=== PATIENT | male | born 1940 | race Caucasian/White ===

== ENCOUNTER 2017-03-30 07:10 | Inpatient (IN) | payer OTHER, BC ==
[~2017-03-30] VITALS: Ht 182.9 cm; Wt 99.8 kg
--- NOTE | 2017-03-30 07:10 | NUR ---
Patient was BIBA and taken to bed 03 via gurney per EMS.
[2017-03-30 07:14] VITALS: BP 120/63
[2017-03-30] MEDS ORDERED: TOLT1TAB PO (07:19)
--- NOTE | 2017-03-30 07:20 | NUR ---
Dr. Rodriguez evaluating patient at bedside.
[2017-03-30] MEDS ORDERED: RISP0.2515 PO (07:22)
[2017-03-30] MEDS ORDERED: RISP0.5T PO (07:22)
[2017-03-30] MEDS ORDERED: RISP0.5T19 PO (07:22)
[2017-03-30] MEDS ORDERED: DOCU-2 PO (07:23)
[2017-03-30] MEDS ORDERED: ATOR40TA PO (07:28)
[2017-03-30] MEDS ORDERED: METF500T4 PO (07:28)
[2017-03-30] MEDS ORDERED: ASPI81CT27 PO (07:28)
[2017-03-30] MEDS ORDERED: PANT40EC PO (07:28)
[2017-03-30] MEDS ORDERED: METO25TA3 PO (07:28)
[2017-03-30] MEDS ORDERED: TAMS0.4C96 PO (07:28)
[2017-03-30] MEDS ORDERED: FURO20TA8 PO (07:28)
[2017-03-30] MEDS ORDERED: MULT-1184 PO (07:28)
[2017-03-30] MEDS ORDERED: [UNRECOGNIZED DRUG - CODE] PO (07:28)
--- NOTE | 2017-03-30 07:35 | NUR ---
LAB at bedside.
--- NOTE | 2017-03-30 07:39 | NUR ---
XRAY at bedside.
[2017-03-30 07:44] LABS: BASOPHILS % (AUTO) 0.2 % (0.0-2.0); EOSINOPHILS # (AUTO) 0.2 K/uL (0-0.4); EOSINOPHILS % (AUTO) 1.3 % (0.0-4.0); HEMOGLOBIN 11.6 g/dL (12.0-18.0); LYMPHOCYTES # (AUTO) 0.5 K/uL (2.0-11.5); LYMPHOCYTES % (AUTO) 3.7 % (20.5-51.1); MEAN CORPUSCULAR HEMOGLOBIN 31 pg (27-31); MEAN CORPUSCULAR HGB CONC 34 g/dL (33-37); MEAN CORPUSCULAR VOLUME 91 fL (80-94); MONOCYTES # (AUTO) 1.6 K/uL (0.8-1.0); MONOCYTES % (AUTO) 10.8 % (1.7-9.3); NEUTROPHILS # (AUTO) 12.4 K/uL (1.8-7.7); PLATELET COUNT (AUTO) 199 K/uL (140-450); RED BLOOD CELL COUNT(AUTO) 3.74 MIL/uL (4.20-6.10)
--- NOTE | 2017-03-30 07:44 | NUR ---
RT at bedside to perform ABG.
[2017-03-30] MEDS ORDERED: cefTRIAXone 2,000 MG in DEXTROSE 5% 100 ML IV ONE (07:45)
[2017-03-30] MEDS ORDERED: ACETAMINOPHEN EXTRA STRENGTH 500 MG TAB PO ONE (07:45)
[2017-03-30 07:56] LABS: CALCIUM 8.6 mg/dL (8.5-10.1); CARBON DIOXIDE 23.8 mmol/L (21-32); CHLORIDE 104 mmol/L (98-107); CREATININE 1.5 mg/dL (0.6-1.3); GLUCOSE 307 mg/dL (74-106); POTASSIUM 3.8 mmol/L (3.5-5.1); SODIUM SERUM 140 mmol/L (136-145); UREA NITROGEN, BLOOD 23 mg/dL (7-18)
[2017-03-30] MEDS ORDERED: cefTRIAXone 2,000 MG VIAL ONE (07:58)
[2017-03-30 08:01] LABS: ALANINE AMINOTRANSFERASE 24 U/L (12-78); ALBUMIN 2.8 g/dL (3.4-5.0); ALKALINE PHOSPHATASE 104 U/L (46-116); ASPARTATE AMINOTRANSFERASE 34 U/L (15-37); TOTAL BILIRUBIN 0.9 mg/dL (0.0-1.0); TOTAL PROTEIN, SERUM 7.3 g/dL (6.4-8.2)
[2017-03-30 08:03] LABS: WHITE BLOOD COUNT (AUTO) 14.7 K/uL (4.8-10.8)
[2017-03-30 08:04] LABS: INR 1.1 (0.8-1.2); PARTIAL THROMBOPLASTIN TIME 31.3 secs (22-35.6); PROTHROMBIN TIME 10.8 secs (10.8-13.4)
[2017-03-30 08:16] LABS: LACTIC ACID 1.6 mmol/L (0.4-2.0)
--- NOTE | 2017-03-30 08:36 | NUR ---
77/M BIBA FOR FEVER AND ALTERED LOC. PT DENIES PAIN. PT APPEARS CONFUSED. LUNGS CLEAR BILAT. HR EVEN AND REGULAR. AAOX3. VSS. ERMD TO EVAL PT.
[2017-03-30] MEDS ORDERED: LOVENOX 1MG/KG Q12H SUBQ SCH (09:05)
[2017-03-30 09:11] LABS: APPEARANCE,URINE HAZY (CLEAR); BILIRUBIN,URINE NEGATIVE (NEGATIVE); BLOOD, URINE 3+ (NEGATIVE); COLOR,URINE YELLOW (YELLOW); LEUKOCYTE ESTERASE ,URINE 2+ (NEGATIVE); NITRITE, URINE NEGATIVE (NEGATIVE); PH,URINE 5.5 (5.0-9.0); PROTEIN,URINE 2+ (NEGATIVE); UGLUCOSE NEGATIVE (NEGATIVE)
--- NOTE | 2017-03-30 09:14 | NUR ---
Patient appears to be resting comfortably in bed. Vital Signs within normal limits. Respirations even and unlabored.
--- NOTE | 2017-03-30 09:50 | NUR ---
PC[facility] - [facility] [place]
--- NOTE | 2017-03-30 09:53 | NUR ---
EX - CLOSEST CONTACT CELL IS [phone] - KITTY
--- NOTE | 2017-03-30 10:10 | NUR ---
RPatient appears to be resting comfortably in bed. Vital Signs within normal limits. Respirations even and unlabored.
[2017-03-30 10:11] LABS: BLOOD GAS BASE EXCESS 0.4 mmol/L (-2.0-2.0); BLOOD GAS HCO3 22.5 mmol/L; BLOOD GAS PH 7.508 (7.35-7.45); BLOOD GAS PO2 63.3 mmHg
[2017-03-30 10:12] LABS: BLOOD GAS O2 SAT% 91.9 % (92.0-98.5)
[2017-03-30 11:13] LABS: BACTERIA,URINE 2+ /HPF (None Seen); MUCUS,URINE 1+ /LPF (None Seen); RBC,URINE 11-20 (MOD) /HPF (0-5); SQUAMOUS EPITHELIAL CELL,UR 0-3 (FEW) /LPF (0-3 (FEW)); WBC,URINE 20-60 /HPF (0-5)
[2017-03-30] MEDS ORDERED: ENOXAPARIN 100 MG/ML SYR SUBQ ONE (11:15)
--- NOTE | 2017-03-30 11:52 | NUR ---
Patient appears to be resting comfortably in bed. Vital Signs within normal limits. Respirations even and unlabored.
[2017-03-30] MEDS ORDERED: HYDROcodone/APAP 5/325 MG 1 TAB TAB PO PRN (11:55)
[2017-03-30] MEDS ORDERED: LORazepam 2 MG/ML VIAL IVP PRN (11:55)
[2017-03-30] MEDS ORDERED: ACETAMINOPHEN 325 MG TAB PO PRN (11:55)
[2017-03-30] MEDS ORDERED: ONDANSETRON 4 MG/2 ML VIAL IVP PRN (11:55)
[2017-03-30] MEDS ORDERED: DEXTROSE 50% 50 ML SYR IVP PRN (11:55)
[2017-03-30] MEDS ORDERED: DEXT 5% /NACL 0.9% 1,000 ML IV SCH (11:55)
--- NOTE | 2017-03-30 12:04 | NUR ---
Patient will be admitted to care of DR RICHARDS. Admited to TELE. Will go to room 111A. Belongings list completed. Report to SOLOMON.
--- NOTE | 2017-03-30 12:20 | NUR ---
PT ON UNIT FROM ER. NO S/S OF ACUTE DISTRESS. AAOX2. PT DENIES PAIN AT THIS TIME. ON 2 4L NC. IV SITES PATENT AND INTACT. 2+ PITTING EDEMA NOTED TO BLE. PT ORIENTED TO ROOM. FALL PRECAUTIONS INITIATED. CALL LIGHT WITHIN REACH. SAFETY MEASURES ENSURED. WILL CONTINUE TO MONITOR.
[2017-03-30] MEDS: NACL 0.9% 1,000 ML IV SCH (12:50)
[2017-03-30 13:14] VITALS: BP 116/60
--- NOTE | 2017-03-30 15:38 | NUR ---
PT SLEEPING IN BED. NO S/S OF ACUTE DISTRESS. CALL LIGHT WITHIN REACH. WILL CONTINUE TO MONITOR.
[2017-03-30 16:00] VITALS: BP 153/71
[2017-03-30 16:39] LABS: CREATINE KINASE MB 12.5 ng/mL (0-3.6)
[2017-03-30] MEDS: BLOOD GLUCOSE MONITORING 1 DEV DEV FS SCH ×2 (17:11→20:34)
--- NOTE | 2017-03-30 17:26 | NUR ---
PT TAKEN OFF UNIT TO VQ SCAN
[2017-03-30] MEDS ORDERED: LOVENOX 1MG/KG Q24H SUBQ SCH (17:30)
[2017-03-30] MEDS ORDERED: CLINICAL MONITORING MC PRN (17:50)
[2017-03-30] MEDS: INSULIN LISPRO SLIDING SCALE 100 UNITS/ML VIAL SUBQ PRN ×2 (18:17→20:51)
--- NOTE | 2017-03-30 19:23 | NUR ---
ENDORSED PLAN OF CARE TO NIGHT RN. PT REMAINS IN STABLE CONDITION.
--- NOTE | 2017-03-30 19:30 | NUR ---
RECEIVED REPORT FROM DAY RN AT BEDSIDE PATIENT IS AAOX1 CONFUSED,RE ORIENTED TO ROOM AND SURROUNDINGS. ON O2 2L VIA NC. PATIENT DENIES PAIN, SKIN INTACT, IV TO LEFT WRIST AND RIGHT FOREARM PATENT AND INTACT, NOTED 2+PITTING EDEMA TO RIGHT FOOT. DISCUSSED PLAN OF CARE WITH PATIENT, PATIENT VERBALIZED UNDERSTANDING BUT NEEDS REINFORCEMENT PT IS FORGETFUL. SAFETY MEASURES CHECKED, NO BED ALARM ON BED, PATIENT COMPLIANT. CALL LIGHT WITHIN REACH. WILL CONTINUE TO MONITOR.
[2017-03-30 20:00] VITALS: BP 112/69
[2017-03-30] MEDS: DOCUSATE SODIUM 100 MG GELCAP PO SCH (20:34)
[2017-03-30] MEDS: METOPROLOL 25 MG TAB PO SCH (20:35)
[2017-03-30] MEDS: ATORVASTATIN 20 MG TAB PO SCH (20:35)
--- NOTE | 2017-03-30 21:10 | NUR ---
PM MEDS ADMINISTERED, PATIENT TOLERATED WELL, CALL LIGHT WITHIN REACH. WILL CONTINUE TO MONITOR
--- NOTE | 2017-03-30 22:15 | NUR ---
DR LORD IN TO SEE PATIENT , WILL F/U WITH ORDERS.
[2017-03-30] MEDS ORDERED: VANCOMYCIN PER PHARMACY MC PRN (22:20)
[2017-03-30] MEDS ORDERED: VANCOMYCIN 1GM/DEXT 5% PREMIX 200 ML IV ONE (22:35)
[2017-03-30] MEDS: LEVOFLOXACIN 500 MG/D5W PREMIX 100 ML IV SCH (22:37)
--- NOTE | 2017-03-30 22:40 | NUR ---
PATIENT RESTING COMFORTABLE IN BED, NO SOB OR SIGN OF DISTRESS AT THIS TIME, CALL LIGHT WITHIN REACH. WILL CONTINUE TO MONITOR.
[2017-03-30] MEDS ORDERED: VANCOMYCIN 1,000 MG VIAL ONE (23:17)
[2017-03-31] VITALS (7 sets, daily range): BP systolic 98–143; BP diastolic 48–74
--- NOTE | 2017-03-31 00:23 | NUR ---
VITAL SIGNS STABLE, NO SOB OR SIGN OF DISTRESS, INSPECTOR CLIP ON SUNGLASSES ALERTED PATIENT HAD 7 BEAT RUN OF V-TACH, PATIENT ASYMPTOMATIC DENIES CHEST PAIN, WILL CONTINUE TO CLOSELY MONITOR.
[2017-03-31 02:30] LABS: CREATINE KINASE MB 3.6 ng/mL (0-3.6)
--- NOTE | 2017-03-31 04:00 | NUR ---
VITAL SIGNS STABLE, NO SOB OR SIGN OF DISTRESS CALL LIGHT WITHIN REACH. WILL CONTINUE TO MONITOR.
[2017-03-31] MEDS: NACL 0.9% 1,000 ML IV SCH ×2 (05:59→22:00)
[2017-03-31] MEDS: BLOOD GLUCOSE MONITORING 1 DEV DEV FS SCH ×4 (06:41→20:34)
[2017-03-31] MEDS: INSULIN LISPRO SLIDING SCALE 100 UNITS/ML VIAL SUBQ PRN ×4 (06:43→20:40)
[2017-03-31 06:50] LABS: BASOPHILS % (AUTO) 0.2 % (0.0-2.0); EOSINOPHILS # (AUTO) 0.1 K/uL (0-0.4); EOSINOPHILS % (AUTO) 1.3 % (0.0-4.0); HEMATOCRIT 33.3 % (36-52); HEMOGLOBIN 11.3 g/dL (12.0-18.0); LYMPHOCYTES # (AUTO) 0.9 K/uL (2.0-11.5); LYMPHOCYTES % (AUTO) 8.2 % (20.5-51.1); MEAN CORPUSCULAR HEMOGLOBIN 32 pg (27-31); MEAN CORPUSCULAR HGB CONC 34 g/dL (33-37); MEAN CORPUSCULAR VOLUME 93 fL (80-94); MONOCYTES # (AUTO) 1.5 K/uL (0.8-1.0); MONOCYTES % (AUTO) 14.4 % (1.7-9.3); NEUTROPHILS % (AUTO) 75.9 % (42.2-75.2); PLATELET COUNT (AUTO) 186 K/uL (140-450); RED BLOOD CELL COUNT(AUTO) 3.59 MIL/uL (4.20-6.10); RED CELL DISTRIBUTION WIDTH 13.1 % (11.6-13.7)
[2017-03-31 06:59] LABS: ANION GAP 13.6 (8-16); CALCIUM 8.4 mg/dL (8.5-10.1); CARBON DIOXIDE 27.4 mmol/L (21-32); CHLORIDE 106 mmol/L (98-107); CREATININE 1.1 mg/dL (0.6-1.3); GLUCOSE 188 mg/dL (74-106); SODIUM SERUM 143 mmol/L (136-145); UREA NITROGEN, BLOOD 23 mg/dL (7-18)
[2017-03-31 07:11] LABS: MAGNESIUM 2.2 mg/dL (1.8-2.4)
--- NOTE | 2017-03-31 07:30 | NUR ---
ENDORSED PATIENT TO DAY RN AT BEDSIDE, PATIENT IN STABLE CONDITION
--- NOTE | 2017-03-31 07:30 | NUR ---
RECEIVED REPORT FROM NIGHT RN AT BEDSIDE PATIENT HAS HX OF DEMENTIA,RE ORIENTED TO ROOM AND SURROUNDINGS. ON O2 2L VIA NC. NO SOB NOTED. PATIENT DENIES PAIN, SKIN INTACT, IV TO RIGHT WRIST RUNNING NS AT 60 ML/HR. PATENT AND INTACT, EDEMA TO BLE NOTED . DISCUSSED PLAN OF CARE WITH PATIENT, PATIENT VERBALIZED UNDERSTANDING . SAFETY MEASURES CHECKED, CALL LIGHT WITHIN REACH. WILL CONTINUE TO MONITOR.
[2017-03-31 07:46] LABS: WHITE BLOOD COUNT (AUTO) 10.5 K/uL (4.8-10.8)
[2017-03-31] MEDS ORDERED: metFORMIN 500 MG TAB PO SCH (08:00)
[2017-03-31] MEDS: TAMSULOSIN 0.4 MG CAP PO SCH (08:11)
[2017-03-31] MEDS: POTASSIUM CHLORIDE 10 MEQ TABER PO SCH (08:11)
[2017-03-31] MEDS: METOPROLOL 25 MG TAB PO SCH ×2 (08:12→21:00)
[2017-03-31] MEDS: MULTIVITAMIN/MINERALS 1 TAB PO SCH (08:12)
[2017-03-31] MEDS: risperiDONE 1 MG TAB PO SCH (08:12)
[2017-03-31] MEDS: PANTOPRAZOLE 40 MG TABEC PO SCH (08:12)
[2017-03-31] MEDS: ASPIRIN 81 MG TAB.CHEW PO SCH (08:13)
[2017-03-31] MEDS ORDERED: ENOXAPARIN 30 MG/0.3 ML SYR SUBQ SCH (09:00)
[2017-03-31] MEDS ORDERED: FUROSEMIDE 20 MG TAB PO SCH (09:00)
--- NOTE | 2017-03-31 09:42 | NUR ---
PATIENT HAS BEEN SCREENED AND CATEGORIZED MODERATE NUTRITION RISK. PATIENT WILL BE SEEN WITHIN 3-5 DAYS OF ADMISSION. 04/02/17 - 04/04/17 PTARIA JEREZ MBA, RD
[2017-03-31] MEDS: ENOXAPARIN 100 MG/ML SYR SUBQ SCH (11:00)
--- NOTE | 2017-03-31 11:30 | NUR ---
LUNCH TRAY SERVED, PT TOLERATED WELL.
[2017-03-31 14:27] LABS: CREATINE KINASE MB 1.9 ng/mL (0-3.6)
--- NOTE | 2017-03-31 16:30 | NUR ---
DR. RICHARDS IN TO SEE PT, NOTIFIED TROPONIN LEVEL 0.482, NO NEW ORDER RECEIVED .
--- NOTE | 2017-03-31 17:05 | NUR ---
PT HAD DINNER, NO S/S OF RESPIRATORY DISTRESS NOTED.
[2017-03-31] MEDS: VANCOMYCIN 1,500 MG in DEXTROSE 5% 250 ML IV SCH (17:42)
--- NOTE | 2017-03-31 19:05 | NUR ---
REPORT GIVEN TO ROLL HANDLER RN. VSS
--- NOTE | 2017-03-31 19:30 | NUR ---
RECEIVED REPORT FROM DAY RN AT BEDSIDE, PATIENT IS AAOX1 ON O2 2L VIA NC, NO SOB OR SIGN OF DISTRESS AT THIS TIME, PATIENT IS SLEEPY AND LETHARGIC BUT AROUSABLE TO STIMULI. IV TO RIGHT FOREARM PATENT AND INTACT IV TO LAC PATENT AND INTACT, SKIN INTACT WITH 2+ PITTING EDEMA TO RIGHT FOOT, NAVARRO PRESENT DRAINING DARK YANDY URINE TO GRAVITY. PATIENT DENIES PAIN, FLACC-0, DISCUSSED PLAN OF CARE WITH PATIENT, PATIENT NEEDS REINFORCEMENT, CALL LIGHT WITHIN REACH, WILL CONTINUE TO MONITOR.
[2017-03-31] MEDS: ATORVASTATIN 20 MG TAB PO SCH (21:00)
[2017-03-31] MEDS: DOCUSATE SODIUM 100 MG GELCAP PO SCH (21:00)
[2017-03-31] MEDS: LEVOFLOXACIN 500 MG/D5W PREMIX 100 ML IV SCH (21:39)
--- NOTE | 2017-03-31 21:50 | NUR ---
PO PM MEDS NON ADMINISTERED, PATIENT REFUSED AND WANTED TO SLEEP. CALL LIGHT WITHIN REACH. WILL CONTINUE TO MONITOR.
--- NOTE | 2017-03-31 23:00 | NUR ---
PATIENT SLEEPING, NO SOB OR SIGN OF DISTRESS, CALL LIGHT WITHIN REACH. WILL CONTINUE TO MONITOR.
--- NOTE | 2017-03-31 23:54 | NUR ---
VITAL SIGNS STABLE, NO SIGN OF DISTRESS, CALL LIGHT WITHIN REACH. WILL CONTINUE TO MONITOR.
--- NOTE | 2017-04-01 00:10 | NUR ---
VITAL SIGNS STABLE, NO SOB OR SIGN OF DISTRESS, PATIENT SLEEPING, CALL LIGHT WITHIN REACH. WILL CONTINUE TO MONITOR
--- NOTE | 2017-04-01 02:45 | NUR ---
PATIENT SLEEPING, NO SOB OR SIGN OF DISTRESS, CALL LIGHT WITHIN REACH. WILL CONTINUE TO MONITOR.
[2017-04-01 04:00] VITALS: BP 140/72
--- NOTE | 2017-04-01 04:15 | NUR ---
PATIENT AWAKE ALERT RESTING IN BED COMFORTABLE, NO SIGN OF DISTRESS, VITAL SIGNS STABLE, CALL LIGHT WITHIN REACH. WILL CONTINUE TO MONITOR.
[2017-04-01] MEDS: BLOOD GLUCOSE MONITORING 1 DEV DEV FS SCH ×4 (06:35→21:46)
--- NOTE | 2017-04-01 07:20 | NUR ---
RECEIVED PT IN BED. AWAKE, ALERT ORIENTED X2, FORGETFUL. ON O2 AT 2LPM NC. NO SOB NOTED. DENIES ANY PAIN OR DISCOMFORT AT THIS TIME. PT ON BEDREST. NAVARRO CATHETER IN PLACE, DRAINING DARK YELLOW URINE. SAFETY PRECAUTION IN PLACE. CALL LIGHT WITHIN REACH.
[2017-04-01 07:22] LABS: BASOPHILS % (AUTO) 0.4 % (0.0-2.0); EOSINOPHILS # (AUTO) 0.2 K/uL (0-0.4); EOSINOPHILS % (AUTO) 2.7 % (0.0-4.0); HEMOGLOBIN 10.9 g/dL (12.0-18.0); LYMPHOCYTES # (AUTO) 0.9 K/uL (2.0-11.5); LYMPHOCYTES % (AUTO) 12.8 % (20.5-51.1); MEAN CORPUSCULAR HEMOGLOBIN 31 pg (27-31); MEAN CORPUSCULAR HGB CONC 33 g/dL (33-37); MEAN CORPUSCULAR VOLUME 93 fL (80-94); MONOCYTES # (AUTO) 1.3 K/uL (0.8-1.0); MONOCYTES % (AUTO) 18.1 % (1.7-9.3); NEUTROPHILS # (AUTO) 4.7 K/uL (1.8-7.7); PLATELET COUNT (AUTO) 226 K/uL (140-450); RED BLOOD CELL COUNT(AUTO) 3.54 MIL/uL (4.20-6.10)
--- NOTE | 2017-04-01 07:30 | NUR ---
ENDORSED PATIENT TO DAY RN AT BEDSIDE, PATIENT IN STABLE CONDITION
[2017-04-01 07:39] LABS: ANION GAP 13.7 (8-16); CALCIUM 8.3 mg/dL (8.5-10.1); CARBON DIOXIDE 25.2 mmol/L (21-32); CHLORIDE 107 mmol/L (98-107); GLUCOSE 147 mg/dL (74-106); POTASSIUM 3.9 mmol/L (3.5-5.1); SODIUM SERUM 142 mmol/L (136-145); UREA NITROGEN, BLOOD 18 mg/dL (7-18)
[2017-04-01 07:52] LABS: MAGNESIUM 2.1 mg/dL (1.8-2.4); PHOSPHORUS 2.8 mg/dL (2.5-4.9)
[2017-04-01 08:00] VITALS: BP 127/69
[2017-04-01 08:05] LABS: WHITE BLOOD COUNT (AUTO) 7.1 K/uL (4.8-10.8)
[2017-04-01 08:16] LABS: CKMB RELATIVE INDEX 0.4 (0.0-2.5)
[2017-04-01] MEDS: MULTIVITAMIN/MINERALS 1 TAB PO SCH (08:38)
[2017-04-01] MEDS: POTASSIUM CHLORIDE 10 MEQ TABER PO SCH (08:38)
[2017-04-01] MEDS: PANTOPRAZOLE 40 MG TABEC PO SCH (08:38)
[2017-04-01] MEDS: ASPIRIN 81 MG TAB.CHEW PO SCH (08:38)
[2017-04-01] MEDS: TAMSULOSIN 0.4 MG CAP PO SCH (08:38)
[2017-04-01] MEDS: METOPROLOL 25 MG TAB PO SCH ×2 (08:39→21:28)
[2017-04-01] MEDS: risperiDONE 1 MG TAB PO SCH (08:39)
[2017-04-01] MEDS: NACL 0.9% 1,000 ML IV SCH (08:50)
[2017-04-01] MEDS ORDERED: TOLTERODINE LA 4 MG CAPER PO SCH (09:00)
--- NOTE | 2017-04-01 09:00 | NUR ---
RECEIVED TELEPHONE ORDER FROM DR. RICHARDS FOR TREATMENT OF MRSA NARES AND CARRIED OUT.
--- NOTE | 2017-04-01 10:05 | NUR ---
LOC AWAKE AND ALERT RESPONSIVE TO BOARD LINING MACHINE OPERATOR VERBAL COMMANDS PATIENT ASSESSMENT COMPLETED BREATH SOUNDS CLEAR BILATERAL WITH GOOD AERATION THROUGHOUT AND CHEST RISE SATURATION 98% ON SUPPLEMENTAL OXYGEN AT 2 LPM VIA NC HR 68 RR 16 UNABLE TO COLLECT PULMONARY SPUTUM AT THIS TIME
[2017-04-01] MEDS: ENOXAPARIN 100 MG/ML SYR SUBQ SCH (10:28)
--- NOTE | 2017-04-01 11:46 | NUR ---
GOOD SKIN CARE PROVIDED TO PT. PT HAD ONE LARGE BM, BROWN IN COLOR, SOFT, NON WATERY IN CONSISTENCY. REPOSITIONED PT TO COMFORT. OFFLOAD BONY PROMINENCE.
[2017-04-01 12:00] VITALS: BP 138/66
--- NOTE | 2017-04-01 12:00 | NUR ---
DR. RICHARDS CAME TO SEE PT. AWARE OF PT ON CONTACT ISOLATION DUE TO MRSA NARES. WITH ORDERS MADE AND CARRIED OUT.
[2017-04-01] MEDS: INSULIN LISPRO SLIDING SCALE 100 UNITS/ML VIAL SUBQ PRN ×3 (12:05→21:50)
--- NOTE | 2017-04-01 12:45 | NUR ---
RECEIVED A CALL FROM PATTI FROM LABS REGARDING CRITICAL LABS ( MDRO URINE, ECOLI URINE). PAGED LOYDA CODY. DR. LORD CAME TO SEE PT AND MADE AWARE OF CRITICAL LAB RESULT. AT 1300 RECEIVED A CALL FROM DR. RICHARDS AND MADE AWARE OF CRITICAL LAB RESULT.
[2017-04-01 16:00] VITALS: BP 110/62
[2017-04-01] MEDS: VANCOMYCIN 1,500 MG in DEXTROSE 5% 250 ML IV SCH (17:34)
--- NOTE | 2017-04-01 19:30 | NUR ---
RECEIVED REPORT FROM DAY RN AT BEDSIDE, PATIENT IS AAOX2 ON O2 AT 2L VIA NASAL CANNULA, NO SOB OR SIGN OF DISTRESS NOTED. IV TO RIGHT FOREARM AND LEFT WRIST PATENT AND INTACT, SKIN INTACT WITH EDEMA TO RIGHT FOOT, PATIENT DENIES PAIN AT THIS TIME, DISCUSSED PLAN OF CARE WITH PATIENT , PATIENT VERBALIZED UNDERSTANDING, BUT NEEDS REINFORCEMENT, SAFETY MEASURES CHECKED, CALL LIGHT WITHIN REACH .WILL CONTINUE TO MONITOR.
--- NOTE | 2017-04-01 19:31 | NUR ---
ENDORSED PT TO NEXT SHIFT FOR CONTINUITY OF CARE. PT KEPT CLEAN, DRY, AND COMFORTABLE, NEEDS ATTENDED. NO SOB, DENIES ANY PAIN OR DISCOMFORT AT THIS TIME.
[2017-04-01 20:00] VITALS: BP 134/55
[2017-04-01] MEDS: DOCUSATE SODIUM 100 MG GELCAP PO SCH (21:28)
[2017-04-01] MEDS: ATORVASTATIN 20 MG TAB PO SCH (21:28)
[2017-04-01] MEDS: LEVOFLOXACIN 500 MG/D5W PREMIX 100 ML IV SCH (21:30)
--- NOTE | 2017-04-01 21:47 | NUR ---
PM MEDS ADMINISTERED, PATIENT TOLERATED WELL, PATIENT PULLED OUT IV TO RIGHT FOREARM TIP INTACT, IV CONNECTED TO OTHER IV ON LEFT WRIST, PATIENT RESTING IN BED, CALL LIGHT WITHIN REACH. WILL CONTINUE TO MONITOR
--- NOTE | 2017-04-01 22:35 | NUR ---
PATIENT RESTING COMFORTABLE IN BED WATCHING TV, NO SIGN OF DISTRESS, CALL LIGHT WITHIN REACH. WILL CONTINUE TO MONITOR.
[2017-04-02] VITALS: BP 144/70
--- NOTE | 2017-04-02 00:30 | NUR ---
VITAL SIGNS STABLE, NO SOB OR SIGN OF DISTRESS, CALL LIGHT WITHIN REACH. WILL CONTINUE TO MONITOR. PT STILL CONFUSED ATTEMPTING TO GET OUT OF BED, TRANSFERRED PATIENT TO BED WITH BED ALARM ON, WILL CONTINUE TO CLOSELY MONITOR
--- NOTE | 2017-04-02 02:30 | NUR ---
PATIENT RESTING COMFORTABLE IN BED, NO SIGN OF DISTRESS, CALL LIGHT WITHIN REACH. WILL CONTINUE TO MONITOR.
[2017-04-02 04:00] VITALS: BP 124/56
--- NOTE | 2017-04-02 04:10 | NUR ---
VITAL SIGNS STABLE, NO SOB OR SIGN OF DISTRESS, CALL LIGHT WITHIN REACH. WILL CONTINUE TO MONITOR
[2017-04-02 06:17] LABS: BASOPHILS % (AUTO) 0.4 % (0.0-2.0); EOSINOPHILS # (AUTO) 0.3 K/uL (0-0.4); EOSINOPHILS % (AUTO) 4.3 % (0.0-4.0); HEMATOCRIT 32.6 % (36-52); LYMPHOCYTES % (AUTO) 14.6 % (20.5-51.1); MEAN CORPUSCULAR HEMOGLOBIN 31 pg (27-31); MEAN CORPUSCULAR HGB CONC 34 g/dL (33-37); MEAN CORPUSCULAR VOLUME 91 fL (80-94); MONOCYTES % (AUTO) 15.7 % (1.7-9.3); NEUTROPHILS # (AUTO) 4.3 K/uL (1.8-7.7); PLATELET COUNT (AUTO) 237 K/uL (140-450); RED BLOOD CELL COUNT(AUTO) 3.58 MIL/uL (4.20-6.10); RED CELL DISTRIBUTION WIDTH 12.8 % (11.6-13.7)
[2017-04-02 06:28] LABS: ANION GAP 12.6 (8-16); CALCIUM 8.4 mg/dL (8.5-10.1); CARBON DIOXIDE 26.5 mmol/L (21-32); CHLORIDE 104 mmol/L (98-107); GLUCOSE 153 mg/dL (74-106); POTASSIUM 4.1 mmol/L (3.5-5.1); SODIUM SERUM 139 mmol/L (136-145); UREA NITROGEN, BLOOD 16 mg/dL (7-18)
[2017-04-02 06:41] LABS: MAGNESIUM 2.1 mg/dL (1.8-2.4); PHOSPHORUS 3.4 mg/dL (2.5-4.9)
[2017-04-02 06:52] LABS: WHITE BLOOD COUNT (AUTO) 6.6 K/uL (4.8-10.8)
--- NOTE | 2017-04-02 07:29 | NUR ---
ENDORSED PATIENT TO DAY RN AT BEDSIDE, PATIENT IN STABLE CONDITION
[2017-04-02] MEDS: BLOOD GLUCOSE MONITORING 1 DEV DEV FS SCH ×4 (07:30→20:21)
--- NOTE | 2017-04-02 07:30 | NUR ---
RECEIVED PT IN BED. AWAKE. ALERT ORIENTEDX2. NO SOB NOTED. ON 02 AT 2LPM NC. DENIES ANY PAIN OR DISCOMFORT AT THIS TIME. POSITIVE BOWEL SOUNDS NOTED ON FOUR QUADRANTS. NAVARRO CATHETER IN PLACE, DRAINING CLEAR DARK YELLOW URINE. SAFETY PRECAUTION IN PLACE. CALL LIGHT WITHIN REACH.
[2017-04-02 08:00] VITALS: BP 137/69
[2017-04-02] MEDS: CHLORHEXADINE GLUC 2% CLOTH TP SCH (08:29)
[2017-04-02] MEDS: risperiDONE 1 MG TAB PO SCH (08:30)
[2017-04-02] MEDS: OXYBUTYNIN 5 MG TAB PO SCH (08:30)
[2017-04-02] MEDS: LOSARTAN 25 MG TAB PO SCH (08:30)
[2017-04-02] MEDS: PANTOPRAZOLE 40 MG TABEC PO SCH (08:30)
[2017-04-02] MEDS: METOPROLOL 25 MG TAB PO SCH ×2 (08:30→20:37)
[2017-04-02] MEDS: MULTIVITAMIN/MINERALS 1 TAB PO SCH (08:30)
[2017-04-02] MEDS: ASPIRIN 81 MG TAB.CHEW PO SCH (08:31)
[2017-04-02] MEDS: TAMSULOSIN 0.4 MG CAP PO SCH (08:31)
[2017-04-02] MEDS: POTASSIUM CHLORIDE 10 MEQ TABER PO SCH (08:31)
[2017-04-02] MEDS: MUPIROCIN 2% OINT 22 GM TUBE TP SCH (08:31)
[2017-04-02] MEDS: ENOXAPARIN 100 MG/ML SYR SUBQ SCH (11:23)
[2017-04-02 12:00] VITALS: BP 109/60
[2017-04-02 16:00] VITALS: BP 137/72
--- NOTE | 2017-04-02 16:00 | NUR ---
KITTY SISTER OF PT CAME TO SEE PT. AND ASKED FOR SOME UPDATE REGARDING PT CONDITION.
--- NOTE | 2017-04-02 17:00 | NUR ---
RACHEL ( DAUGHTER) CALLED, AND WANTED TO KNOW THE STATUS OF HIS FATHER AT THE MOMENT AND WOUND WANT TO GET HOLD OF THE DOCTOR, REGARDING PT'S CONDITION. DAUGHTER MADE AWARE OF THE GENERAL CONDITION OF PT AND WILL LET DR. RICHARDS KNOW WHEN HE COMES THAT THE DAUGHTER WOULD WANT TO SPEAK WITH HIM..
[2017-04-02] MEDS: VANCOMYCIN 1,500 MG in DEXTROSE 5% 250 ML IV SCH (17:12)
--- NOTE | 2017-04-02 17:12 | NUR ---
LABS CAME TO DRAW PT BLOOD FOR VANCOMYCIN TROUGH. VANCOMYCIN ANTIBIOTIC SCANNED AND READY. CALLED PHARMACY SPOKE WITH APRIL MADE AWARE THAT VANCOMYCIN IV ANTIBIOTIC WAS SCANNED AND HANG BUT NOT STARTED YET, AWAITING FOR VANCOMYCIN TROUGH RESULT. PER APRIL SHE WILL GIVE ME THE GO SIGNAL TO START THE VANCOMYCIN ONCE THE TROUGH RESULT IS READY.
[2017-04-02] MEDS: INSULIN LISPRO SLIDING SCALE 100 UNITS/ML VIAL SUBQ PRN ×2 (17:27→20:29)
--- NOTE | 2017-04-02 17:54 | NUR ---
RECEIVED VANCOMYCIN TROUGH RESULT 6.3. CALLED APRIL (PHARMACY) MADE AWARE, WITH ORDER TO START THE PREVIOUSLY PREPARED VANCOMYCIN. VANCOMYCIN IVF ANTIBIOTIC STARTED 1754.
--- NOTE | 2017-04-02 18:59 | NUR ---
DR. RICHARDS CAME TO SEE PT. AND MADE AWARE OF DAUGHTER REQUEST TO SPEAK WITH HIM. DR. RICHARDS CALLED DAUGHTER RACHEL.
--- NOTE | 2017-04-02 19:28 | NUR ---
PT KEPT CLEAN, DRY AND COMFORTABLE, NEEDS ATTENDED. ASLEEP AT THE MOMENT, AROUSABLE TO VOICE. NO SOB, NO SIGNS AND SYMPTOMS OF ACUTE DISTRESS NOTED. DENIES ANY PAIN OR DISCOMFORT AT THIS TIME. PT ENDORSED TO UPCOMING SHIFT ON STABLE CONDITION FOR CONTINUITY OF CARE.
--- NOTE | 2017-04-02 19:30 | NUR ---
ASSUMED CARE OF PATIENT. SLEEPING EASILY AROUSABLE. CALL LIGHT WITHIN REACH.
--- NOTE | 2017-04-02 20:00 | NUR ---
REPOSITIONED TO SIDE LYING. NO COMPLAINS. SLEEPING WELL. CALL LIGHT WITHIN REACH.
[2017-04-02] MEDS: ATORVASTATIN 20 MG TAB PO SCH (20:37)
[2017-04-02] MEDS: DOCUSATE SODIUM 100 MG GELCAP PO SCH (20:38)
--- NOTE | 2017-04-02 21:00 | NUR ---
WENT TO CT FOR CT HEAD.
--- NOTE | 2017-04-02 21:20 | NUR ---
BACK FROM CT SCAN OF HEAD VIA BED.
[2017-04-02] MEDS: LEVOFLOXACIN 500 MG/D5W PREMIX 100 ML IV SCH (21:29)
[2017-04-02 23:38] VITALS: BP 120/71
[2017-04-03 00:10] VITALS: BP 120/71
--- NOTE | 2017-04-03 00:11 | NUR ---
REPOSITIONED. SLEEPING WELL. EASILY AROUSABLE. VITAL SIGNS STABLE. AFEBRILE. CALL LIGHT WITHIN REACH.
--- NOTE | 2017-04-03 04:34 | NUR ---
REPOSITIONED TO LEFT SIDE LYING, PERICARE DONE. DC NAVARRO CATHETER-1500ML URINE OUTPUT NOTED. NEW IV SITE INSERTED.
[2017-04-03] MEDS: VANCOMYCIN 1,500 MG in DEXTROSE 5% 250 ML IV SCH ×2 (05:00→17:06)
[2017-04-03] MEDS: BLOOD GLUCOSE MONITORING 1 DEV DEV FS SCH ×3 (05:54→16:58)
[2017-04-03 06:47] LABS: ANION GAP 11.6 (8-16); CALCIUM 8.7 mg/dL (8.5-10.1); CARBON DIOXIDE 26.8 mmol/L (21-32); CHLORIDE 102 mmol/L (98-107); GLUCOSE 175 mg/dL (74-106); POTASSIUM 4.4 mmol/L (3.5-5.1); SODIUM SERUM 136 mmol/L (136-145); UREA NITROGEN, BLOOD 15 mg/dL (7-18)
[2017-04-03 06:53] LABS: CK-BB 0 % (0); CK-MB 0 % (0-3); CK-MM 100 % (97-100)
[2017-04-03 06:58] LABS: PHOSPHORUS 3.8 mg/dL (2.5-4.9)
--- NOTE | 2017-04-03 07:17 | NUR ---
ENDORSED CARE AT BEDSIDE WITH ROVERTO ROMEO, PATIENT IN STABLE CONDITION.
[2017-04-03 07:20] LABS: BASOPHILS # (AUTO) 0.1 K/uL (0.00-0.22); BASOPHILS % (AUTO) 0.8 % (0.0-2.0); EOSINOPHILS # (AUTO) 0.3 K/uL (0-0.4); EOSINOPHILS % (AUTO) 3.9 % (0.0-4.0); HEMATOCRIT 35.2 % (36-52); HEMOGLOBIN 11.7 g/dL (12.0-18.0); LYMPHOCYTES # (AUTO) 1.1 K/uL (2.0-11.5); LYMPHOCYTES % (AUTO) 13.5 % (20.5-51.1); MEAN CORPUSCULAR HEMOGLOBIN 30 pg (27-31); MEAN CORPUSCULAR HGB CONC 33 g/dL (33-37); MEAN CORPUSCULAR VOLUME 91 fL (80-94); MONOCYTES # (AUTO) 0.6 K/uL (0.8-1.0); MONOCYTES % (AUTO) 7.3 % (1.7-9.3); NEUTROPHILS # (AUTO) 6.2 K/uL (1.8-7.7); NEUTROPHILS % (AUTO) 74.5 % (42.2-75.2); PLATELET COUNT (AUTO) 284 K/uL (140-450); RED BLOOD CELL COUNT(AUTO) 3.87 MIL/uL (4.20-6.10); RED CELL DISTRIBUTION WIDTH 12.7 % (11.6-13.7)
--- NOTE | 2017-04-03 07:20 | NUR ---
REPORT RECEIVED FROM END FINDER TWISTING DEPARTMENT, CARE ASSUMED AT THIS TIME, PT RESTING WITH EYES CLOSED, RESP EVEN UNLABORED ON ROOM AIR IN NAD, AROUSED EASILY BY VOICE, PLAN OF CARE REVIEWED, PT DENIES ANY IMMEDIATE NEEDS, CALL MC WITHIN REACH, SIDE RAILS UP, BED LOCKED IN LOW POSITION, WILL CONTINUE TO MONITOR. Addendum: 04/03/17 at 0755 by Roselyn Dawkins RN REPORT RECEIVED FROM END FINDER TWISTING DEPARTMENT, CARE ASSUMED AT THIS TIME, PT RESTING WITH EYES CLOSED, RESP EVEN UNLABORED ON ROOM AIR IN NAD, AROUSED EASILY BY VOICE, PLAN OF CARE REVIEWED, PT AO X1, PT DENIES ANY IMMEDIATE NEEDS, CALL MC WITHIN REACH, SIDE RAILS UP, BED LOCKED IN LOW POSITION, BED ALARM ON, LAB AT BEDSIDE FOR BLOOD DRAW, WILL CONTINUE TO MONITOR.
[2017-04-03 07:42] LABS: WHITE BLOOD COUNT (AUTO) 8.3 K/uL (4.8-10.8)
[2017-04-03 08:00] VITALS: BP 118/65
[2017-04-03] MEDS: CHLORHEXADINE GLUC 2% CLOTH TP SCH (08:16)
[2017-04-03] MEDS: TAMSULOSIN 0.4 MG CAP PO SCH (08:25)
[2017-04-03] MEDS: PANTOPRAZOLE 40 MG TABEC PO SCH (08:25)
[2017-04-03] MEDS: OXYBUTYNIN 5 MG TAB PO SCH (08:25)
[2017-04-03] MEDS: ASPIRIN 81 MG TAB.CHEW PO SCH (08:26)
[2017-04-03] MEDS: MULTIVITAMIN/MINERALS 1 TAB PO SCH (08:26)
[2017-04-03] MEDS: POTASSIUM CHLORIDE 10 MEQ TABER PO SCH (08:26)
[2017-04-03] MEDS: METOPROLOL 25 MG TAB PO SCH (08:26)
[2017-04-03] MEDS: risperiDONE 1 MG TAB PO SCH (08:26)
[2017-04-03] MEDS: LOSARTAN 25 MG TAB PO SCH (08:27)
[2017-04-03] MEDS: MUPIROCIN 2% OINT 22 GM TUBE TP SCH (08:35)
--- NOTE | 2017-04-03 09:01 | NUR ---
RECEIVED A CALL FROM PATIENT'S DAUGHTER RACHEL,[phone]. SHE SAID SHE SPOKE WITH DR. RICHARDS YESTERDAY AND WAS TOLD THAT HE WOULD PROBABLY DISCHARGE THE PATIENT TODAY. SHE PREFERS THAT HE GO BACK TO [facility] UPON DISCHARGE. I TOLD HER THAT THE PATIENT HAS INFECTION IN THE URINE, SO [facility] MIGHT NOT BE ABLE TO TAKE HIM BACK AT THIS TIME AND THAT HE MIGHT NEED A SNF FOR SHORT TIME. IF HE DID, SHE PREFERED [facility] IN [place] OR [facility]. SHE ALSO WAS ASKING ABOUT PHYSICAL THERAPY,AND I TOLD HER DR DID ORDER A PT EVAL FOR HIM TODAY.
--- NOTE | 2017-04-03 09:39 | NUR ---
RECEIVED A CALL FROM PATIENT'S DAUGHTER. IF PATIENT NEEDS SNF, [facility] IN [place] FIRST, [place], THEN [facility].
--- NOTE | 2017-04-03 11:01 | NUR ---
04/03/17 RD INITIAL ASSESSMENT COMPLETED PLEASE REFER TO NUTRITION ASSESSMENT UNDER CARE ACTIVITY FOR ESTIMATED NUTRITIONAL NEEDS. 1. CONTINUE 60G CONSISTENT CARBOHYDRATE, CARDIAC DIET 2. ADD DIET HEALTH SHAKE TID 3. RD TO FOLLOW-UP 2-3 DAYS; HIGH RISK JAYLA AGOSTO, MICHAEL
--- NOTE | 2017-04-03 11:17 | NUR ---
EX DONALD AT BEDSIDE, PLAN OF CARE DISCUSSED, PT AWAKE ALERT, RESP EVEN UNLABORED, SKIN WARM DRY COLOR WNL, CALL MC WITHIN REACH, BED LOCKED IN LOW POSITION, WILL CONTINUE TO MONITOR.
[2017-04-03] MEDS: ENOXAPARIN 100 MG/ML SYR SUBQ SCH (11:22)
[2017-04-03] MEDS: INSULIN LISPRO SLIDING SCALE 100 UNITS/ML VIAL SUBQ PRN (11:29)
--- NOTE | 2017-04-03 11:45 | NUR ---
FINGER STICK GLUCOSE 186, 2 UNITS INSULIN GIVEN, PT DARIELA WELL, PT RESTING QUIETLY IN NAD, DENIES ANY IMMEDIATE NEEDS AT THIS TIME, CALL MC WITHIN REACH, BED LOCKED IN LOW POSITION, SIDE RAILS UP, BED ALARM ON, WILL CONTINUE TO MONITOR.
--- NOTE | 2017-04-03 11:57 | NUR ---
SPOKE WITH DR. Danay RICHARDS THIS AM AND TOLD HIM ABOUT THE MDRO IN URINE AND MRSA NARES AND INFORMED HIM THAT [facility] CANNOT TAKE PATIENT BACK ON ISOLATION. I ALSO TOLD HIM THAT PHYSICAL THERAPY IS RECOMMENDING SNF FOR PT. HE SAID HE WOULD PUT IN ORDER FOR SNF.
--- NOTE | 2017-04-03 12:32 | NUR ---
PT CLOTHING AND SHOES BROUGHT IN BIG BLACK BAG BY DONALD, PT'S NAME LABEL PLACED AND LEFT AT BEDSIDE.
[2017-04-03] MEDS ORDERED: BACTO TP (13:11)
[2017-04-03] MEDS ORDERED: LOSA25TA1 PO (13:11)
--- NOTE | 2017-04-03 13:45 | NUR ---
DC/TRANSFER ORDER RECEIVED FROM DR RICHARDS, AWAITING SNF PLACEMENT BY CASE MANAGEMENT. PT SITTING UP IN BED IN NAD, RESP EVEN UNALBORED, SKIN WARM DRY COLOR WNL, CALL MC WITHIN REACH, BED LOCKED IN LOW POSITION, SIDE RAILS UP, BED ALARM ON, WILL CONTINUE TO MONITOR.
--- NOTE | 2017-04-03 14:00 | NUR ---
SMALL BM AND WET DIAPER, PERICARE DONE, GOWN CHANGED, LINEN CHNAGED, PT DARIELA WELL.
--- NOTE | 2017-04-03 15:07 | NUR ---
PIV REPLACED TO RIGHT FA, GOOD FLASH BACK OF BLOOD, FLUSHES WELL, SITE CLEAR, SECURED WELL, WRAPPED WITH EDWIN, COVERED WELL TO PREVENT PULLING. PT DARIELA WELL.
--- NOTE | 2017-04-03 15:22 | NUR ---
GOT A SOFIA QUOTE FROM [employer] FOR GURNEY TRANSPORT OF $114. CALLED DAUGHTER, RACHEL, AND SHE SAID SHE WOULD PAY FOR TRANSPORT. CALLED [facility] [employer] AND SET UP GURNEY TRANSPORT FOR 7P.Taylor TROY RN CHARGE NURSE AWARE. I ASKED HER TO CALL THE DAUGHTER TO TELL HER THE TIME. I ALREADY TOLD THE DAUGHTER WHERE THE PATIENT WAS GOING , ROOM NUMBER AND
--- NOTE | 2017-04-03 15:27 | NUR ---
REPORT CALLED TO JANET ROMEO AT [facility] AT , ALL QUESTIONS ASKED AND ANSWERED, TRANSPORT ARRANGED BY CASE MANAGEMENT FOR 7PM ARRT TECHNOLOGIST TIME, WILL CONTINUE TO MONITOR.
[2017-04-03 16:00] VITALS: BP 99/56
--- NOTE | 2017-04-03 16:01 | NUR ---
DAUGHTER RACHEL CALLED AT [phone] UPDATED PLAN REPORTED, PT TO BE TRANSFERRED TO [facility] AT 7PM BY [facility].
[2017-04-03] MEDS ORDERED: VANC1.5P7 IV (16:22)
[2017-04-03] MEDS ORDERED: LEVO750T2 IV (16:27)
[2017-04-03 18:31] VITALS: BP 110/58
--- NOTE | 2017-04-03 18:34 | NUR ---
PT FINISHED DINNER, DARIELA WELL, DIAPER CHANGED, SMALL BM, PERICARE DONE, PT GOWN CHANGED, LINEN CHANGED, AWAITING TRANSPORT, PT TALKING CLEARLY, CONFUSED, STILL OX1 TO PERSON ONLY, SKIN WARM DRY COLOR WNL, IV ANTIBIOTIC INFUSING, SITE CLEAR, WILL CONTINUE TO MONITOR.
--- NOTE | 2017-04-03 18:56 | NUR ---
UPDATED REPORT GIVEN TO ABDI ROMEO AT [facility] AT [phone] SHE IS MADE AWARE OF LAST VANCO AND LEVAQUIN DOSES, [facility] DELAYED, ETA 90 MIN, PT SITTING UP IN BED IN NAD, CALL MC WITHIN REACH, BED LOCKED IN LOW POSTION, SIDE RAILS UP, BED ALARM ON, WILL CONTINUE TO MONITOR.
--- NOTE | 2017-04-03 19:24 | NUR ---
REPORT GIVEN TO DEPARTMENT HEAD JUNIOR COLLEGE NURSE AMBROCIO RN, PT IN STABLE CONDITION.
--- NOTE | 2017-04-03 19:40 | NUR ---
RECEIVED PT IN STABLE CONDITION FROM AM NURSE. PT IS AAO X2. WITH PERIODS OF CONFUSION. AWAITING FOR CERAMIC CAPACITOR PROCESSOR DC TO [employer]. [place]. PT WITH IVF ACCESS ON THE RT FA#[id number]. . MADE AWARE ABOUT THE DISCHARGE. REINFORCEMENT NEEDED. CALL LIGHT PLACED WITHIN EASY REACH. WILL CONTINUE TO MONITOR.
--- NOTE | 2017-04-03 20:00 | NUR ---
ID BAND REMOVED. PICKED UP BY [facility] BY [facility] TO [facility]. DC 'D WITH IV ACCESS AND PERSONAL BELONGINGS IN A BLACK LARGE BAG ENDORSED TO TRANSPORTER TOGETHER WITH ALL DC PAPERS. PT IN STABLE CONDITION UPON DISCHARGE.
== END 2017-04-03 20:00 | DRG 871 ==
LOC: MED 07:10 → MTU 12:11
PROVIDERS: ADMIT Preventive Medicine Preventive Medicine/Occupational Environmental Medicine; ATTEND Preventive Medicine Preventive Medicine/Occupational Environmental Medicine
DX: A41.9 Sepsis, unspecified organism (principal); I21.4 Non-ST elevation (NSTEMI) myocardial infarction; J18.9 Pneumonia, unspecified organism; N39.0 Urinary tract infection, site not specified; N17.9 Acute kidney failure, unspecified; M62.82 Rhabdomyolysis; I13.0 Hypertensive heart and chronic kidney disease with heart failure and stage 1 through stage 4 chronic kidney disease, or unspecified chronic kidney disease; K21.9 Gastro-esophageal reflux disease without esophagitis; N40.0 Benign prostatic hyperplasia without lower urinary tract symptoms; F03.90 Unspecified dementia, unspecified severity, without behavioral disturbance, psychotic disturbance, mood disturbance, and anxiety; E78.5 Hyperlipidemia, unspecified; B96.20 Unspecified Escherichia coli [E. coli] as the cause of diseases classified elsewhere; D64.9 Anemia, unspecified; E11.65 Type 2 diabetes mellitus with hyperglycemia; I50.9 Heart failure, unspecified; N18.9 Chronic kidney disease, unspecified; E11.22 Type 2 diabetes mellitus with diabetic chronic kidney disease; Z16.24 Resistance to multiple antibiotics; Z22.322 Carrier or suspected carrier of Methicillin resistant Staphylococcus aureus; Z79.01 Long term (current) use of anticoagulants; Z87.891 Personal history of nicotine dependence
CPT/HCPCS: 36415; 36600; 51702; 70450; 71010; 76770; 78582; 80048; 80053; 80202; 81001; 82550; 82552; 82553; 82803; 82948; 83605; 83735; 84100; 84300; 84484; 85025; 85379; 85610; 85651; 85730; 86140; 87040; 87081; 87086; 87186; 87804; 93005; 93970; 96365; 96372; 97110; 97140; 99285; A9512; J0696; J1650; J1815; J1956; J3370; J7030; J7060; Q0092